=== PATIENT | male | born 1990 | race Caucasian/White ===

== ENCOUNTER 2019-08-27 09:41 | Emergency (ER) | payer MEDICAID, SELFPAY ==
[2019-08-27 09:47] VITALS: BP 105/72; PULSE 84; RESP 16; TEMP 36.7; O2SAT 96
--- NOTE | 2019-08-27 09:54 | ED.GENADUL_ITS ---
Discharge Plan Disposition Patient Disposition: HOME Condition: Stable Discharge Details Chief Complaint: Orthopedic Clinical Impression: Contusion of arm, left Primary Care Provider: None,None ED Provider: Tavares Oquendo Home Meds and New Rx's Prescriptions: No Action No Known Home Meds RF: 0 Discharge Instructions Instructions: Contusion in Adults (ED) Medical Decision Making 28 yo male comes in with left arm pain. He states earlier this morning he slipped on ice and landed on his left forearm/wrist. He did not hit his head or have loc. No headache, neck pain, chest pain, abd pain, leg pain. He has pain in the mid left forearm, ulnar surface of the wrist with limited rom and pain over 5th metacarpal middle portion. Has intact sensation and pulses and full rom of the fingers. No pain in elbow, humerus or shoulder with full rom of the elbow and shoulder xrays negative, will place in splint and advised him to see his pcp or ortho if pain still present in a week, no snuffbox tenderness so doubt scaphoid fx Differential Diagnosis Differential Diagnosis: fracture, contusion, sprain, strain Imaging Data Radiologic Study: Attestation: I personally reviewed and interpreted this imaging study as follows: Imaging: X-Ray Radiologist's impression: negative forearm xray Radiologic Study #2: Attestation: I personally reviewed and interpreted this imaging study as follows: Imaging: X-Ray Radiologist's impression: negative wrist xray Radiologic Study #3: Attestation: I personally reviewed and interpreted this imaging study as follows: Imaging: X-Ray Radiologist's impression: negative hand xray HPI General Mode of arrival: ambulatory . Date/Time Provider Initiated Documentation: 08/27/19 09:51 . Limitations to Documentation: no limitations . Information obtained by: patient . History of Present Illness 28 year old M presents to the emergency department with the chief complaint of left arm pain, described as moderate, and it has been constant. No relieving factors improve symptom(s), No exacerbating factors reported . Patient did receive the following treatments prior to arrival, none Related Data Home Medications Medication Instructions Recorded Confirmed Unknown [No Known Home Meds] 08/27/19 08/27/19 Allergies Allergy/AdvReac Type Severity Reaction Status Date / Time fentanyl AdvReac very sleepy Unverified 08/27/19 09:46 General Stated Complaint: Orthopedic KHAI: 4 Review of Systems All systems reviewed & are unremarkable except as noted in HPI and below Constitutional Constitutional: Denies chills, Denies fever(s) and Denies weakness Cardiovascular Cardiovascular: Denies chest pain and Denies dyspnea Respiratory Respiratory: Denies cough and Denies dyspnea Gastrointestinal Gastrointestinal: Denies abdominal pain, Denies nausea and Denies vomiting Neurologic Neurologic: Denies weakness Psychiatric Psychiatric: Denies depression PFS Social History Smoking/Tobacco Use Status: Current every day Tobacco Type: cigarettes Alcohol Intake: never Drug use: Daily Substance use type: marijuana Do you feel safe at home: Yes Do you feel safe in your relationship?: Yes Exam Const General: no acute distress Orientation: alert HENMT Head: normal to inspection Ears: external ears normal General nose exam: external nose normal Mouth: moist mucous membranes Eyes General: appearance normal, both eyes and all related structures Neck Neck: normal visual inspection Resp Effort & Inspection: normal respiratory effort and able to speak in complete sentences Cardio Rate: regular rate Skin General skin exam: no rashes or lesions noted Neuro General: alert and oriented x3 Extrem General: full ROM and normal capillary refill Psych Mental Status: mental status grossly normal Course Vital Signs Vital signs: Vital Signs Temperature 36.7 C 08/27/19 09:47 Pulse 84 08/27/19 09:47 Respiratory Rate 16 08/27/19 09:47 Blood Pressure 105/72 08/27/19 09:47 Pulse Oximetry 96 08/27/19 09:47 Temperature 36.7 C 08/27/19 09:47 Temperature Source Temporal Artery Scan 08/27/19 09:47 Pulse 84 08/27/19 09:47 Respiratory Rate 16 08/27/19 09:47 Respiratory Effort Non-Labored 08/27/19 09:51 Blood Pressure 105/72 08/27/19 09:47 Blood Pressure Position Sitting 08/27/19 09:47 Pulse Oximetry 96 08/27/19 09:47 Oxygen Delivery Method Room Air 08/27/19 09:47 Oxygen Flow Rate 0 08/27/19 09:47 Pain Level 8 08/27/19 09:52
[2019-08-27] MEDS: Ibuprofen 600 MG TAB PO (09:57)
--- NOTE | 2019-08-27 10:02 | DI.RAD_ITS ---
EXAM: XR FOREARM LT INDICATION: pain s/p fall. COMPARISON: No exams were available for comparison TECHNIQUE: 2D digital imaging was performed. FINDINGS: No fracture or dislocation is seen. The wrist and elbow are unremarkable as visualized. IMPRESSION: Negative left forearm.
--- NOTE | 2019-08-27 10:02 | DI.RAD_ITS ---
EXAM: XR HAND LT COMPLETE INDICATION: pain s/p fall. COMPARISON: No exams were available for comparison TECHNIQUE: 2D digital imaging was performed. FINDINGS: No fracture or dislocation is seen. IMPRESSION: Negative left hand.
--- NOTE | 2019-08-27 10:20 | DI.RAD_ITS ---
EXAM: XR WRIST LT COMPLETE INDICATION: pain s/p fall. COMPARISON: No exams were available for comparison TECHNIQUE: 2D digital imaging was performed. FINDINGS: No fracture or dislocation is seen. IMPRESSION: Negative left wrist.
[2019-08-27 10:40] VITALS: BP 92/58; PULSE 69; RESP 15; O2SAT 97
--- NOTE | 2019-08-27 10:40 | NUR.NOTE ---
Nursing Note: 1015--experienced a near syncopal episode in DI---did not eat breakfast this am---laying on stretcher with cool cloth--eating crackers and drinking orange juice at 1030
[2019-08-27 10:57] VITALS: BP 100/74; PULSE 72; RESP 16; O2SAT 97
== END 2019-08-27 11:01 | disposition home or self-care (01) ==
PROVIDERS: Emergency Provider Emergency Medicine
DX: S50.12XA Contusion of left forearm, initial encounter (principal); S60.222A Contusion of left hand, initial encounter; W00.0XXA Fall on same level due to ice and snow, initial encounter
CPT/HCPCS: 29125; 99284; 73090; 73110; 73130; 99283; L3908

== ENCOUNTER 2020-02-03 14:38 | Outpatient (REF) | payer MEDICAID, SELFPAY ==
[2020-02-05 12:27] LABS: Abstinence 2.5 d; Acrosom Defect 24.5 %; Appearance Normal; Container Type 50 mL Conical; Double Forms 0.5 %; Grade 2.5 (>=2.5); Head Size Abnormal 1.5 %; Midpiece Defect 9.5 %; Motile/Ejaculate 29.2 x10(6) (>=9.0); Motile/mL 7.3 x10(6) (>=6.0); Motility 33 % (>=40); Strict Morph NL 6.5 % (>=4.0); Study Type Semen; Tail Defect 33.5 %; WBC/mL 0.11 x10(6) (<1.00)
== END 2020-02-03 14:58 ==
LOC: LBN 14:38
PROVIDERS: PCP Nurse Practitioner Family; Visit Provider Obstetrics & Gynecology Gynecology
DX: Z31.41 Encounter for fertility testing (principal)
CPT/HCPCS: 89240; 89310